=== PATIENT | male | born 1960 | race Caucasian/White ===

== ENCOUNTER → 2018-07-09 08:34 | Day surgery (SDC) | payer BC ==
[2015-07-30 14:37] VITALS: BP 96/63
--- NOTE | 2015-07-30 19:41 | RAD ---
CPT II Codes: 6045F INDICATION: ORIF of the Lisfranc joint TECHNIQUE: Intraoperative fluoroscopy was provided during plate and screw fixation of the right Lisfranc joint. FINDINGS: 5 spot films depict plate and screw fixation with bone allograft of the right first and second metatarsal and medial cuneiform.. Fluoroscopy time: 6.9 seconds IMPRESSION: As above.
--- NOTE | 2015-07-31 02:06 | OP ---
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 OPERATIVE PROCEDURE: Right four-corner fusion mid foot with tibial bone graft. DESCRIPTION OF PROCEDURE: The patient was taken to the operating room where a longitudinal incision made over the dorsum of the first TMT joint. We extended the incision laterally across the dorsum of the second TMT joint as well as the intercuneiform joint. Using the head of my retractor, we were able to open these joints sequentially and remove the cartilage from, with a 2.4-mm power bur. Through a 4-cm incision proximally at Gerdy's tubercle, we incised down to the lateral proximal tibial cortex opening the area with a small power bur. We harvested cancellous bone for graft, replacing the bone with allograft chips. We then closed the periosteum with 2-0 Vicryl and the skin with subcuticular suture. The autograft was placed in the mid foot at the first and second TMT joints and between the first and second cuneiform. Fixation was performed in a sequential fashion. Claw plates were placed over the dorsum of the first and second TMT joints and compressed and then we compressed the medial lateral column pinning this with cortical screws from the medial to lateral portion of the second metatarsal and cuneiform. X-rays were then performed intraoperatively and showed satisfactory alignment of the structure. We then irrigated thoroughly closing with Vicryl and nylon sutures and a compression dressing plaster splint applied. [id number] #: [id number] [facility]
[~2018-07-09 08:34] MED LIST: Bupivacaine 0.5% SDV PF* 30ML VIAL ONE; Dexamethasone IV* 4 MG/ML 1 ML (4 MG) ONE; Famotidine IV* 10 MG/ML 2 ML (20 mg) ONE; HYDROmorphone INJ* 1 MG/ML CARPUJECT SYRINGE ONE; KETAMINE HCL* 50 MG/ML 10 ML VIAL ONE; Ketorolac INJ* 30 MG/ML 1 ML VIAL ONE; Lidocaine 2% PF * 5 ML VIAL ONE; Metoclopramide IV* 5 MG/ML 2 ML VIAL ONE; Midazolam* 1 MG/ML 5 ML VIAL (5 MG) ONE; Ondansetron INJ* 2 MG/ML VIAL ONE; Propofol* 20 ML ONE; Scopolamine 1.5 mg* PATCH ONE; ceFAZolin 2 GM PREMIX (*) 50 ML IVPB ONE; fentaNYL* 50 MCG/ML 2 ML VIAL (100 MCG VIAL) ONE; oxyCODONE TAB* 5 MG TAB ONE
== END | disposition home or self-care (01) ==
LOC: OR 07-30 07:25
PROVIDERS: ATTEND Orthopaedic Surgery
CPT/HCPCS: 76000; A9270-GY; C1713; C1776; C9359; J0690; J1100; J1170; J1885; J2250; J2405; J2704; J3010